=== PATIENT | female | born 1990 | race Caucasian/White ===

== ENCOUNTER 2021-04-08 09:30 | Outpatient (CLI) | payer BC | END 2021-04-08 09:31 | disposition home or self-care (01) | LOC: CSHCT 09:30 | PROVIDERS: ATTEND Urology | DX: N39.0 Urinary tract infection, site not specified (principal); Z87.442 Personal history of urinary calculi; Q62.39 Other obstructive defects of renal pelvis and ureter; N20.0 Calculus of kidney; N28.89 Other specified disorders of kidney and ureter | CPT/HCPCS: 74178 ==

== ENCOUNTER 2022-04-17 04:56 | Emergency (ER) | payer BC ==
[2022-04-17] MEDS ORDERED: Dexamethasone 4 MG TAB ONE (06:06)
[2022-04-17] MEDS ORDERED: Lidocaine 5% Patch TD SCH (06:15)
[2022-04-17] MEDS ORDERED: Ketorolac Tromethamine 30 MG/ML VIAL ONE (11:27)
== END 2022-04-17 11:45 | disposition home or self-care (01) ==
LOC: CSHERS 04:56
DX: M54.12 Radiculopathy, cervical region (principal); I10 Essential (primary) hypertension; Z79.899 Other long term (current) drug therapy
CPT/HCPCS: 71250; 72125; 72141; 96372; J1885; J8540

== ENCOUNTER 2022-06-03 10:02 | Outpatient (CLI) | payer BC | END 2022-06-03 10:03 | disposition home or self-care (01) | LOC: CSHRAD 10:02 | PROVIDERS: ATTEND Urology | DX: N20.0 Calculus of kidney (principal) | CPT/HCPCS: 74018 ==